=== PATIENT | male | born 1965 | race Caucasian/White ===

== ENCOUNTER 2017-11-25 06:42 | Day surgery (SDC) | payer OTHER, SELFPAY ==
--- NOTE | 2017-11-25 | PATH_ITS ---
[facility] Accession Number: [id number] . 01 Material submitted: . APPENDICEAL OPENING BIOPSY . 02 Diagnosis: Appendiceal Orifice Polyp, Biopsy: Sessile serrated adenoma. MRV/11/29/2017 . 02 Electronically signed: . Ronnie Carpio MD, PhD, Pathologist NPI- [id number] . 01 Gross description: . APPENDICEAL OPENING BIOPSY: Received in formalin are 2 fragment(s) of cutler, soft tissue measuring 0.7 x 0.3 x 0.1 cm to 0.2 x 0.2 x 0.1 cm submitted entirely in 1 cassette(s) /TRC /TRC . 02 Pathologist provided ICD-10: D12.1 . 02 CPT . 485233 Performed at: 01 [facility] [address] [id number] MD John Saldaña MD Phone: [phone] Performed at: 02 [facility] [address] [place], [place] [id number] MD Joel Coronado MD Phone: [phone]
[2017-11-25 07:22] VITALS: BP 128/74; PULSE 63; RESP 16; TEMP 36.5; O2SAT 97; BMI 24.0
--- NOTE | 2017-11-25 08:11 | PM.HP.1 ---
History of Present Illness Date Patient Seen: 11/25/17 Time Patient Seen: 08:11 Chief complaint: colonoscopy [id number] Narrative: Patient here for screening colonoscopy and possible hemorrhoid banding. He has been having a little bit blood at times. Patient History Family & Social History Social History: household members spouse,children Tobacco & Substance use: Smoking Status Never smoker alcohol intake former Meds Home Medications Medication Instructions Recorded Confirmed Type cetirizine 10 mg capsule 10 mg PO DAILY PRN 10/21/17 11/25/17 History meloxicam 15 mg tablet 15 mg PO .prn tab 10/21/17 11/25/17 History Allergies Allergy/AdvReac Type Severity Reaction Status Date / Time Penicillins Allergy Verified 11/25/17 07:19 Exam Vital Signs (past 8 hours): - 11/25/17 07:22 Temperature 97.7 F Pulse Rate 63 Respiratory Rate 16 Blood Pressure 128/74 H Pulse Oximetry 97 Oxygen Delivery Method Room Air Narrative Exam Narrative: Operative no apparent distress lungs are clear heart regular rate and rhythm no murmur gallop. Abdomen is soft nontender without mass. Will proceed colonoscopy Assessment & Plan Plan: Assessment/Plan Narrative: Will proceed to colonoscopy. I have discussed the procedure and the rationale with the patient including risks of bleeding, perforation which would necessitate a major operation, failure to find remove all lesions and the potential to tattoo. They appeared to understand and wished to proceed.
--- NOTE | 2017-11-25 08:13 | PM.PREOP ---
Pre-operative Note Interval Note Pre-op Check: Yes History & Physical exam performed today by Physician Changes: No ASA Class (for procedural sedation): I
[2017-11-25] MEDS: fentaNYL 250 MCG/5 ML INJ IV (08:28)
[2017-11-25] MEDS: MIDAZOLAM 5 MG/5 ML VIAL IV (08:28)
--- NOTE | 2017-11-25 08:52 | PM.OP.ENDO ---
Operative Date/Time/Diagnoses Date of procedure: 11/25/17 Time of procedure: 08:52 Pre-op diagnosis: Rectal bleeding. Screening. Post-op diagnosis: same (Internal hemorrhoids. Small polyp at the appendiceal opening.) Procedure & Clinicians Study performed: Colonoscopy with cold biopsy. Anoscopy with 3 column hemorrhoidal banding Same procedure as scheduled: Yes Indications: Rectal bleeding Surgeon: Luis Magana Procedure Notes SCOAP/Timeout: Performed Procedure in detail: The patient was placed in the left lateral decubitus position and underwent IV sedation directed by the surgeon consisting of fentanyl and Versed. Digital exam was unremarkable. The scope was inserted and advanced through the rectum into the sigmoid, descending, transverse, and ascending colon. No lesions were seen.. The cecum was reached identified by the ileocecal valve and the appendiceal opening. There was a small lesion at the appendiceal opening which I biopsied and removed. The ileocecal valve was successfully cannulated. The terminal ileum was normal in appearance. The scope was gradually brought out. No other Polyps were found a. The scope ultimately was retroflexed in the rectum. The appearance was[remarkable for internal hemorrhoids without ulceration]. The scope was removed and the patient tolerated the procedure well. Anus scope was then inserted and a circumferential a nausea scope be exam performed. Three columns of hemorrhoids were banded. These were located in the right lateral left posterior lateral and left anterior lateral locations. Patient tolerated this well Scope withdrawal time: Six and 0.5 min Sedation minutes: 27 Findings: internal hemorrhoids and polyp (In the cecum at the appendiceal opening) Specimen(s): other (Polyp) Complications: none Recommendations: Colonscopy in 5 years Plan for aftercare: Follow-up in the office in 3 weeks Follow up: weeks (Three) Disposition: PACU
[2017-11-25 08:54] VITALS: BP 104/69; PULSE 56; RESP 13; TEMP 36.6; O2SAT 96
[2017-11-25 08:59] VITALS: BP 112/71; PULSE 63; RESP 12; O2SAT 97
[2017-11-25 09:04] VITALS: BP 110/79; PULSE 57; RESP 20; TEMP 36.3; O2SAT 98
[2017-11-25 09:25] VITALS: BP 99/64; PULSE 54; RESP 10; TEMP 36; O2SAT 100
[2017-11-25] MEDS: SODIUM CHLORIDE 0.9% 1,000 ML 200 ML IV (09:38)
== END 2017-11-25 09:41 | disposition home or self-care (01) ==
PROVIDERS: Family Provider Family Medicine; PCP Family Medicine; Visit Provider Specialist
PROC: 0DJD8ZZ Inspection of Lower Intestinal Tract, Via Natural or Artificial Opening Endoscopic (ICD-10-PCS; CPT 45378; principal; 2017-11-25 07:45)
DX: Z12.11 Encounter for screening for malignant neoplasm of colon (principal); K64.8 Other hemorrhoids; D12.1 Benign neoplasm of appendix
CPT/HCPCS: 45380; 46221; 99152; 99153; J2250; J3010

== ENCOUNTER → 2018-03-09 17:57 | Outpatient (CLI) | payer OTHER, SELFPAY ==
--- NOTE | 2018-03-09 | DI.MRI.S_ITS ---
PROCEDURE: MR CERVICAL SPINE WO CON INDICATIONS: Neck pain/left arm radiculopathy TECHNIQUE: Noncontrast sagittal T1 spin echo and T2 fast spin echo, sagittal STIR, foraminal oblique sagittal T2 fast spin echo, and axial gradient echo or T2 fast spin echo through the cervical spine. COMPARISON: None. FINDINGS: Image quality: Excellent. Alignment and Curvature: There is normal bony alignment. There is reversal of normal cervical spine curvature. Bone Marrow: Reactive endplate changes and adjacent to the C4-C5, C5-C6 and C6-C7 discs. Spinal Cord: Visualized spinal cord has normal size and signal. No cerebellar tonsillar herniation. Paraspinous Soft Tissues: No paravertebral masses. Prevertebral soft tissues are normal in thickness. C2-C3: Loss of disc signal. No central stenosis. No neural foraminal narrowing. No neural impingement. C3-C4: Loss of disc signal. Minimal, diffuse disc bulge. Severe left facet hypertrophy. Moderate left uncovertebral joint hypertrophy. No central stenosis. Severe left neural foraminal narrowing with slight flattening deformity exiting left C4 nerve root. The right neural foramen is widely patent. C4-C5: Loss of disc signal and height. Moderate, diffuse disc bulge. Mild left facet hypertrophy. Mild right and moderate left uncovertebral joint hypertrophy. Mild to moderate narrowing of the central canal. Severe bilateral neural foraminal narrowing with flattening deformity exiting C5 nerve roots. C5-C6: Loss of disc signal and height. Moderate, diffuse disc bulge. Mild bilateral facet hypertrophy. Moderate bilateral uncovertebral joint hypertrophy. Severe central stenosis with flattening deformity of the cervical spinal cord. Severe bilateral neural foraminal narrowing with flattening deformity of the exiting C6 nerve roots. C6-C7: Loss of disc signal and height. Moderate, diffuse disc bulge. Mild bilateral facet hypertrophy. Moderate bilateral uncovertebral joint hypertrophy. Moderate to severe narrowing of the central canal. Severe bilateral neural foraminal narrowing with flattening deformity exiting C7 nerve roots. C7-T1: Loss of disc signal. Minimal, diffuse disc bulge. No central stenosis. No neural foraminal narrowing. No neural impingement. IMPRESSION: 1. Multilevel degenerative disc disease. 2. Multilevel facet arthropathy and uncovertebral joint hypertrophy. 3. Severe C5-C6 central canal narrowing. Moderate to severe C6-C7 central canal narrowing. Mild to moderate C4-C5 central canal narrowing. 4. Severe bilateral C4-C5, C5-C6 and C6-C7 neural foraminal narrowing. Severe left C3-C4 neural foraminal narrowing. 5. Flattened deformity exiting left C4 nerve root, the exiting bilateral C5 nerve roots, the exiting bilateral C6 nerve roots and the exiting bilateral C7 nerve roots secondary to neural foraminal narrowing. Please correlate with clinical data. Dictated by: Cristal Bonds MD, PhD on 03/10/2018 at 10:27 Approved by: Cristal Bonds MD, PhD on 03/10/2018 at 11:47
== END ==
PROVIDERS: PCP Family Medicine; Visit Provider Family Medicine
DX: M50.122 Cervical disc disorder at C5-C6 level with radiculopathy (principal); M47.22 Other spondylosis with radiculopathy, cervical region; M48.02 Spinal stenosis, cervical region
CPT/HCPCS: 72141

== ENCOUNTER → 2022-03-12 09:57 | Outpatient (CLI) | payer OTHER, SELFPAY ==
--- NOTE | 2022-03-12 10:02 | DI.RAD.S_ITS ---
PROCEDURE: XR KNEE RT 3V INDICATIONS: RT KNEE PAIN TECHNIQUE: 3 views of the knee were acquired. COMPARISON: None. FINDINGS: Bones: No fractures or dislocations. No suspicious bony lesions. Mild medial compartment narrowing. Soft tissues: Mild joint effusion. No suspicious soft tissue calcifications. IMPRESSION: No visualized acute fracture or dislocation. However, if clinical concern and/or pain persist, short interval imaging followup in 7-10 days is recommended, as occult injury cannot be definitively excluded. Early medial compartment arthritic change. Dictated by: Tanika Hernandez M.D. on 03/12/2022 at 16:36 Approved by: Tanika Hernandez M.D. on 03/12/2022 at 16:37
== END ==
PROVIDERS: PCP Family Medicine; Referring Provider Family Medicine; Visit Provider Family Medicine
DX: M25.561 Pain in right knee (principal)
CPT/HCPCS: 73562

== ENCOUNTER 2023-02-10 09:50 | Day surgery (SDC) | payer BC, SELFPAY ==
--- NOTE | 2023-02-10 | PATH_ITS ---
[facility] Accession Number: [id number] No. of containers..02 Tissue . 01 Material submitted: . PART A: colon - TRANSVERSE POLYP PART B: sigmoid colon - SIGMOID POLYP . 01 Diagnosis: A. Transverse Colon, Polyp: Tubular adenoma. . B. Sigmoid Colon, Polyp: Hyperplastic polyp. [facility] 02/17/2023 1117 Local . 01 Electronically signed: . Claudette Boo MD, Pathologist NPI- [id number] . 01 Gross description: . Part A: TRANSVERSE POLYP: Received in formalin is 1 fragment(s) of cutler, soft tissue measuring 0.78 x 0.3 x 0.2 cm submitted entirely in 1 cassette(s) Part B: SIGMOID POLYP: Received in formalin is 1 fragment(s) of cutler, soft tissue measuring 0.3 x 0.2 x 0.2 cm submitted entirely in 1 cassette(s) /AAY 02/11/2023 0459 Local . 01 Pathologist provided ICD-10: D12.3 . 01 CPT . 324235, 039130 Specimen Comment: A courtesy copy of this report has been sent to [phone] Performed at: 01 [facility] [address] [place] [address], [place], [place] [id number] MD John Saldaña MD Phone: [phone]
[2023-02-10 10:28] VITALS: BP 135/83; PULSE 65; RESP 18; TEMP 36.8; O2SAT 96; BMI 26.2
[2023-02-10] MEDS: LACTATED RINGERS 1,000 ML 150 ML IV (10:37)
--- NOTE | 2023-02-10 10:56 | PM.HP.1 ---
History of Present Illness History of Present Illness Date Patient Seen: 02/10/23 Time Patient Seen: 10:57 Chief complaint: SDC Narrative: Zana is a 57-year-old man who had a colonoscopy about [address] Magana with 1 adenomatous polyp found. [facility] Medical History (Updated 02/10/23 @ 10:57 by Chandu Saucedo MD) Arthritis Surgical History S/P surgery on nasal septum Family History Sister Cancer Brother Diabetes mellitus Social History (Updated 10/21/17 @ 14:57 by Luis Magana MD) marital status: household members: spouse and children Smoking Status: Never smoker alcohol intake: former Meds Home Medications and Allergies Home Medications Medication Instructions Recorded Confirmed Type meloxicam 15 mg tablet (Mobic) 15 mg PO .prn 10/21/17 02/10/23 History Allergies Allergy/AdvReac Type Severity Reaction Status Date / Time Penicillins Allergy Verified 02/10/23 10:21 Exam Vital Signs (past 8 hours): - 02/10/23 10:28 Temperature 98.2 F Pulse Rate 65 Respiratory Rate 18 Blood Pressure 135/83 Pulse Oximetry 96 Oxygen Delivery Method Room Air Oxygen Delivery Method Room Air Const General: healthy appearing Assessment & Plan Assessment and plan (1) History of colon polyps: Status: Acute Plan We reviewed the risks and benefits of colonoscopy for a history of colon polyps and he would like to proceed.
--- NOTE | 2023-02-10 11:24 | PM.OP.COLON ---
Operative Date/Time/Diagnoses Date of procedure: 02/10/23 Time of procedure: 11:24 Pre-op diagnosis: History of polyps Post-op diagnosis: same Procedure & Clinicians Study performed: Colonoscopy Same procedure as scheduled: Yes Surgeon: Chandu Saucedo Procedure Notes Procedure in detail: Surgeon: Chandu Saucedo MD Anesthesia: Mariam Weathers CRNA Procedure: The patient was brought to the endoscopy suite, placed in left lateral decubitus position. The patient was connected to monitoring devices. A time-out was performed. Sedation was administered. Once the patient was adequately sedated, a digital rectal exam was performed and was normal. The scope was then inserted and advanced to the cecum where the appendiceal orifice was identified and photographed. The scope was then slowly withdrawn over greater than 6 minutes. The mucosa was thoroughly inspected. There was a 7 mm flat polyp in the transverse colon removed with a cold snare. There was a 5 mm pedunculated polyp in the sigmoid colon removed with a cold snare. The scope was retroflexed in the rectum. No other abnormalities were seen. The scope was straightened and removed. The patient was awakened and brought to recovery. Scope withdrawal time: 9 minutes Sedation time: 17 minutes EBL: 5 mL Findings: 7 mm flat polyp in the transverse colon and 5 mm pedunculated polyp in the sigmoid colon Post-procedure Disposition: PACU
[2023-02-10 11:27] VITALS: BP 105/70; PULSE 61; RESP 16; TEMP 36.2; O2SAT 95
[2023-02-10 11:31] VITALS: BP 106/70; PULSE 85; RESP 18; O2SAT 98
[2023-02-10 11:36] VITALS: BP 108/77; PULSE 68; RESP 16; TEMP 36.4; O2SAT 98
== END 2023-02-10 11:49 | disposition home or self-care (01) ==
PROVIDERS: PCP Family Medicine; Referring Provider Surgery; Visit Provider Surgery
PROC: 0DJD8ZZ Inspection of Lower Intestinal Tract, Via Natural or Artificial Opening Endoscopic (ICD-10-PCS; CPT 45378; principal; 2023-02-10 11:00)
DX: Z12.11 Encounter for screening for malignant neoplasm of colon (principal); Z86.010 Personal history of colon polyps; D12.3 Benign neoplasm of transverse colon; K63.5 Polyp of colon
CPT/HCPCS: 45385; J2704